=== PATIENT | female | born 1980 | race American Indian/Alaskan Native ===

== ENCOUNTER 2016-11-16 07:22 | Outpatient (CLI) | payer OTHER ==
--- NOTE | 2016-11-16 10:27 | Mammography Report ---
Baseline IMPLANT MAMMOGRAM with CAD: Bilateral breast imaging was done with standard and displacement technique. Parenchyma is symmetrically seen ventral to each implant. The implant contours are smooth. No suspicious findings or secondary signs of malignancy are seen. A few scattered subareolar microcalcifications on the left are noted. CONCLUSION: Negative implant mammogram. RECOMMENDATION: Routine follow-up. BI-RADS CATEGORY: 1 = Negative ACR BI-RADS MAMMOGRAPHIC CODES: 0 = Needs additional imaging evaluation; 1 = Negative; 2 = Benign; 3 = Probably benign; 4 = Suspicious; 5 = Malignant; 6 = Known biopsy-proven malignancy COMMENT: 1. Dense breast tissue, i.e., adenosis, fibrocystic changes, etc., may obscure an underlying neoplasm. 2. Approximately 10% of cancers are not detected with mammography. 3. A negative mammography report should not delay biopsy if a clinically suspicious mass is present. Comment: Patient follow up letters are generated in [employer].
== END 2016-11-16 07:23 | disposition home or self-care (01) ==
LOC: MAMMO 07:22
PROVIDERS: ATTEND Family Medicine Adult Medicine
DX: Z12.31 Encounter for screening mammogram for malignant neoplasm of breast (principal); Z80.3 Family history of malignant neoplasm of breast; Z98.82 Breast implant status
CPT/HCPCS: 77067; G0202